=== PATIENT | male | born 1945 | race Caucasian/White ===

== ENCOUNTER → 2021-03-24 | Outpatient (CLI) | payer OTHER ==
[~2021-03-24] MED LIST: HYDROCODONE BIT1 T11 PO
== END | disposition home or self-care (01) ==
LOC: US 08:42
PROVIDERS: ATTEND Nurse Practitioner Family
DX: I70.0 Atherosclerosis of aorta (principal); Z72.0 Tobacco use

== ENCOUNTER → 2021-09-27 | Outpatient (CLI) | payer OTHER | END | disposition home or self-care (01) | LOC: CARD 08:19 | PROVIDERS: ATTEND Nurse Practitioner Family | DX: I05.9 Rheumatic mitral valve disease, unspecified (principal) ==

== ENCOUNTER 2024-04-10 18:35 | Emergency (ER) | payer MEDICARE, BC ==
[~2024-04-10] VITALS: Ht 179 cm; Wt 79.4 kg
[2024-04-10] MEDS ORDERED: EPINEPHrine Hydrochloride 1 MG/ML AMP IM ONE (18:55)
[2024-04-10] MEDS ORDERED: diphenhydrAMINE hydrochloride 50 MG/ML VIAL IV ONE (18:55)
[2024-04-10] MEDS ORDERED: SODIUM CHLORIDE 0.9% 1,000 ML IV ONE (18:55)
[2024-04-10] MEDS ORDERED: methylPREDNISolone sod succ 125 MG VIAL IV ONE (18:55)
== END 2024-04-10 21:39 | disposition home or self-care (01) ==
LOC: ED 18:35
DX: T63.441A Toxic effect of venom of bees, accidental (unintentional), initial encounter (principal); L53.0 Toxic erythema; R22.0 Localized swelling, mass and lump, head; Z79.899 Other long term (current) drug therapy; Z98.890 Other specified postprocedural states; Y92.89 Other specified places as the place of occurrence of the external cause